=== PATIENT | female | born 1930 | race Caucasian/White ===

== ENCOUNTER 2018-08-12 09:40 | Inpatient (IN) | payer OTHER ==
[~2018-08-12] VITALS: Ht 165.1 cm; Wt 73.4 kg
[~2018-08-12 09:40] MED LIST: ALBU90OI61 INH; AMOCLA500 PO; ASPI81CH PO; AZIT250 PO; BENZ100A PO; CHOL10002 PO; CIPR500 PO; CODACE30 PO; FOSAMAX PO; GLUCOSAMINE HC500 MG PO; Lovastatin40 MG PO; METO25ER PO; METO50 PO; PRED10 PO; PROM25 PO; TIOT18 INH; [UNRECOGNIZED DRUG - OTHER] PO
[2018-08-12 11:50] LABS: BASOPHILS ABSOLUTE AUTO 0.03 K/mm3 (0.00-0.23); BASOPHILS PERCENT AUTO 0 % (0-2); EOSINOPHILS ABSOLUTE AUTO 0.12 K/mm3 (0.00-0.68); EOSINOPHILS PERCENT AUTO 2 % (0-6); Hematocrit 37.5 % (33.0-51.0); Hemoglobin 11.9 g/dL (11.5-16.0); IMMATURE GRAN ABSOLUTE AUTO 0.04 K/mm3 (0.00-0.10); IMMATURE GRAN PERCENT AUTO 1 % (0-1); LYMPHOCYTES ABSOLUTE AUTO 0.97 K/mm3 (0.84-5.20); LYMPHOCYTES PERCENT AUTO 13 % (21-46); MONOCYTES ABSOLUTE AUTO 0.62 K/mm3 (0.16-1.47); MONOCYTES PERCENT AUTO 8 % (4-13); Mean Corpuscular HGB 29.2 pg (26.0-34.0); Mean Corpuscular HGB Conc 31.7 g/dL (31.5-36.5); Mean Corpuscular Volume 92 fL (80-100); NEUTROPHILS ABSOLUTE AUTO 5.93 K/mm3 (1.96-9.15); NEUTROPHILS PERCENT AUTO 77 % (41-73); Platelet Count 270 K/mm3 (150-400); RDW Coefficient Variation 13.7 % (11.7-14.2); RDW Standard Deviation 46.6 fL (35.1-46.3); Red Blood Cell Count 4.07 M/mm3 (3.80-5.20); White Blood Cell Count 7.71 K/mm3 (4.00-11.30)
[2018-08-12 11:57] LABS: Albumin, Blood 3.4 g/dL (3.4-5.0); Albumin/Globulin Ratio 0.9 (0.8-1.8); Bilirubin, Total 0.3 mg/dL (0.1-1.0); Bun/Creatinine Ratio 12.6 (12.0-20.0); Calcium, Blood 9.1 mg/dL (8.5-10.1); Creatinine, Blood 1.43 mg/dL (0.40-1.00); Globulin, Blood 3.8 g/dL (2.2-4.0); Potassium, Blood 4.7 mmol/L (3.5-5.5); Total Protein, Blood 7.2 g/dL (6.4-8.2)
[2018-08-19 05:05] LABS: BASOPHILS ABSOLUTE AUTO 0.04 K/mm3 (0.00-0.23); BASOPHILS PERCENT AUTO 1 % (0-2); EOSINOPHILS ABSOLUTE AUTO 0.38 K/mm3 (0.00-0.68); EOSINOPHILS PERCENT AUTO 6 % (0-6); Hematocrit 34.8 % (33.0-51.0); Hemoglobin 10.9 g/dL (11.5-16.0); IMMATURE GRAN ABSOLUTE AUTO 0.03 K/mm3 (0.00-0.10); IMMATURE GRAN PERCENT AUTO 1 % (0-1); LYMPHOCYTES PERCENT AUTO 26 % (21-46); MONOCYTES PERCENT AUTO 10 % (4-13); Mean Corpuscular HGB 29.4 pg (26.0-34.0); Mean Corpuscular HGB Conc 31.3 g/dL (31.5-36.5); Mean Corpuscular Volume 94 fL (80-100); Mean Platelet Volume 9.2 fL (9.1-12.4); NEUTROPHILS PERCENT AUTO 57 % (41-73); Platelet Count 198 K/mm3 (150-400); RDW Coefficient Variation 13.6 % (11.7-14.2); RDW Standard Deviation 46.6 fL (35.1-46.3); Red Blood Cell Count 3.71 M/mm3 (3.80-5.20); White Blood Cell Count 6.15 K/mm3 (4.00-11.30)
[2018-08-19 05:35] LABS: Bun/Creatinine Ratio 14.7 (12.0-20.0); Calcium, Blood 8.4 mg/dL (8.5-10.1); Creatinine, Blood 1.09 mg/dL (0.40-1.00); Potassium, Blood 4.2 mmol/L (3.5-5.5)
[2018-08-19] MEDS ORDERED: ASPI81CH PO (10:15)
[2018-08-19] MEDS ORDERED: ACET325 PO (10:15)
[2018-08-19] MEDS ORDERED: Tobrex5 ML RIGHTEAR (10:16)
[2018-08-19] MEDS ORDERED: CIPDEXSU RIGHTEAR (10:16)
[2018-08-24] MEDS ORDERED: Hair, Skin & N1 EACH PO (05:28)
== END 2018-08-19 14:24 | disposition home health service (06) | DRG 863 ==
LOC: ER 09:40 → ERHOLD 09:41 → MEDS 16:08 → ENPENDDIS 08-19 10:03 → MEDS 08-19 14:24
PROVIDERS: Internal Medicine; Physician Assistant
PROC: 0HD Skin and Breast, Extraction (ICD-10-PCS; principal; 2018-08-18)
DX: T81.40XA Infection following a procedure, unspecified, initial encounter (principal); H60.21 Malignant otitis externa, right ear; N17.9 Acute kidney failure, unspecified; L03.211 Cellulitis of face; E66.9 Obesity, unspecified; I12.9 Hypertensive chronic kidney disease with stage 1 through stage 4 chronic kidney disease, or unspecified chronic kidney disease; N18.3 Chronic kidney disease, stage 3 (moderate); G47.30 Sleep apnea, unspecified; B96.5 Pseudomonas (aeruginosa) (mallei) (pseudomallei) as the cause of diseases classified elsewhere; B96.89 Other specified bacterial agents as the cause of diseases classified elsewhere; E78.5 Hyperlipidemia, unspecified; J44.9 Chronic obstructive pulmonary disease, unspecified; Z99.81 Dependence on supplemental oxygen; Z66 Do not resuscitate; C44.212 Basal cell carcinoma of skin of right ear and external auricular canal; Z68.27 Body mass index [BMI] 27.0-27.9, adult
CPT/HCPCS: 36415; 80048; 80053; 82565; 85025; 94640; 94660; 94664; 94760; 94762; 96365; 96372; 96376; 99284-25; G0378; J1650; J2543; J3010; J7050

== ENCOUNTER → 2019-02-08 | Outpatient (CLI) | payer OTHER ==
[~2019-02-08] MED LIST changes: +ACET325 PO; +CIPDEXSU RIGHTEAR; +Hair, Skin & N1 EACH PO; +Tobrex5 ML RIGHTEAR
== END | disposition home or self-care (01) ==
LOC: LAB 13:15 → LAB SHORT 13:15
DX: L08.9 Local infection of the skin and subcutaneous tissue, unspecified (principal)
CPT/HCPCS: 87070; 87205

== ENCOUNTER → 2019-03-08 | Outpatient (CLI) | payer OTHER | END | disposition home or self-care (01) | LOC: LAB 17:39 → LAB SHORT 17:39 | DX: L03.211 Cellulitis of face (principal) | CPT/HCPCS: 87070; 87205 ==

== ENCOUNTER → 2019-03-13 | Outpatient (CLI) | payer OTHER | END | disposition home or self-care (01) | LOC: PLD 15:37 → LAB 15:37 → LAB SHORT 15:37 | DX: C44.212 Basal cell carcinoma of skin of right ear and external auricular canal (principal) | CPT/HCPCS: 88305 ==

== ENCOUNTER 2019-10-17 12:01 | Observation (INO) | payer OTHER ==
[~2019-10-17] VITALS: Ht 165.1 cm; Wt 61.6 kg
[~2019-10-17 12:01] MED LIST changes: +Aspir 8181 MG PO; -CHOL10002 PO; +VITAMIN D350 MCG PO
[2019-10-17 12:53] LABS: BASOPHILS ABSOLUTE AUTO 0.03 K/mm3 (0.00-0.23); BASOPHILS PERCENT AUTO 0 % (0-2); EOSINOPHILS ABSOLUTE AUTO 0.14 K/mm3 (0.00-0.68); EOSINOPHILS PERCENT AUTO 2 % (0-6); Hematocrit 38.6 % (33.0-51.0); Hemoglobin 12.4 g/dL (11.5-16.0); IMMATURE GRAN ABSOLUTE AUTO 0.07 K/mm3 (0.00-0.10); IMMATURE GRAN PERCENT AUTO 1 % (0-1); LYMPHOCYTES ABSOLUTE AUTO 1.18 K/mm3 (0.84-5.20); LYMPHOCYTES PERCENT AUTO 13 % (21-46); MONOCYTES ABSOLUTE AUTO 0.74 K/mm3 (0.16-1.47); MONOCYTES PERCENT AUTO 8 % (4-13); Mean Corpuscular HGB Conc 32.1 g/dL (31.5-36.5); Mean Corpuscular Volume 94 fL (80-100); Mean Platelet Volume 9.1 fL (9.1-12.4); NEUTROPHILS ABSOLUTE AUTO 7.03 K/mm3 (1.96-9.15); NEUTROPHILS PERCENT AUTO 77 % (41-73); Platelet Count 267 K/mm3 (150-400); RDW Coefficient Variation 12.9 % (11.7-14.2); RDW Standard Deviation 44.4 fL (35.1-46.3); Red Blood Cell Count 4.13 M/mm3 (3.80-5.20); White Blood Cell Count 9.19 K/mm3 (4.00-11.30)
[2019-10-17 13:07] LABS: International Normalized Ratio 0.98; Prothrombin Time Results 10.5 Sec (9.7-11.5)
[2019-10-17 13:12] LABS: Albumin, Blood 3.5 g/dL (3.4-5.0); Albumin/Globulin Ratio 0.9 (0.8-1.8); Alk Phos 60 U/L (50-136); Anion Gap 6 mmol/L (6-16); Aspartate Aminotrans (AST/SGOT 24 U/L (12-37); Bilirubin, Total 0.4 mg/dL (0.1-1.0); Blood Urea Nitrogen 23 mg/dL (8-24); Bun/Creatinine Ratio 13.5 (12.0-20.0); CO2, Blood 30 mmol/L (21-32); Calcium, Blood 9.3 mg/dL (8.5-10.1); Chloride, Blood 99 mmol/L (98-108); Globulin, Blood 3.9 g/dL (2.2-4.0); Glomerular Filtration Rate 30 (60-); Glucose, Blood 102 mg/dL (70-99); Potassium, Blood 4.8 mmol/L (3.5-5.5); Sodium, Blood 135 mmol/L (136-145); Total Protein, Blood 7.4 g/dL (6.4-8.2)
[2019-10-17 13:14] LABS: Troponin I <0.015 ng/mL (0.000-0.040)
[2019-10-17 13:25] LABS: Alanine Aminotransfer (ALT/SGP 16 U/L (12-78)
--- NOTE | 2019-10-17 18:30 | NUR ---
PATIENT ADMITED TO ROOM 351, REPORT RECEIVED FROM DANIA SAMSON IN ED. PATIENT IS A/OX4, UP WITH SBA TO RESTROOM. MAINTAINING SATS ON RA. PRODUCTIVE COUGH. SCD'S PLACED. 20G IV TO R FA, BOLUS FROM ED FINISHING UP. PATIENT ORIENTED TO ROOM AND USE OF CALL LIGHT. FALL PRECAUTIONS IN PLACE PER UNIT PROTOCOL.
[2019-10-17 23:48] LABS: Adenovirus Not Detected (NOT DETECT); Bordetella pertussis Not Detected (NOT DETECT); Chlamydophila pneumoniae Not Detected (NOT DETECT); Coronavirus 229E Not Detected (NOT DETECT); Coronavirus HKU1 Not Detected (NOT DETECT); Coronavirus NL63 Not Detected (NOT DETECT); Coronavirus OC43 Not Detected (NOT DETECT); Human Metapneumovirus Not Detected (NOT DETECT); Human Rhinovirus/Enterovirus Not Detected (NOT DETECT); Influenza A Not Detected (NOT DETECT); Influenza A/2009-H1 Not Detected (NOT DETECT); Influenza A/H1 Not Detected (NOT DETECT); Influenza A/H3 Not Detected (NOT DETECT); Influenza B Not Detected (NOT DETECT); Mycoplasma pneumoniae Not Detected (NOT DETECT); Parainfluenza Virus 1 Not Detected (NOT DETECT); Parainfluenza Virus 2 Not Detected (NOT DETECT); Parainfluenza Virus 3 Not Detected (NOT DETECT); Parainfluenza Virus 4 Not Detected (NOT DETECT); Respiratory Syncytial Virus Not Detected (NOT DETECT)
--- NOTE | 2019-10-18 04:43 | NUR ---
ELDERLY WHITE FEMALE WITH HX OF CHILDHOOD TB AND TX OF TB IN [facility] HAS ANGEL AND COPD WITH HOME OXYGEN AND HOME CPAP USE. MORE SHORT OF BREATH AND WENT TO PRIMARY CARE VISIT AND HE SENT TO HOSPITIAL FOR TX OF PROBABLE PNEUMONIA. PT ON OYGEN 2 L AND UNABLE TO TOLERATE HOSPITAL CPAP. PT WITH PRODUCTIVE COUGH RESP PANEL NEGATIVE. ON IV STEROIDS Q 6 HOURS AND RECIEVING 1 L NS AFTER 1800 IV FLUID IN ER. PT IS HARD OF HEARING BUT ABLE TO COMMUNICATE. [facility]. HAS SON WHO LIVES OUT OF STATE. DNR STATUS VERIFIED. ON ANTIBIOTIC THERAPY TO TX SUSPECTED PNEUMONIA.
[2019-10-18 05:21] LABS: BASOPHILS ABSOLUTE AUTO 0.01 K/mm3 (0.00-0.23); BASOPHILS PERCENT AUTO 0 % (0-2); EOSINOPHILS PERCENT AUTO 0 % (0-6); Hematocrit 36.1 % (33.0-51.0); Hemoglobin 11.5 g/dL (11.5-16.0); IMMATURE GRAN ABSOLUTE AUTO 0.04 K/mm3 (0.00-0.10); IMMATURE GRAN PERCENT AUTO 1 % (0-1); LYMPHOCYTES ABSOLUTE AUTO 0.39 K/mm3 (0.84-5.20); LYMPHOCYTES PERCENT AUTO 5 % (21-46); MONOCYTES ABSOLUTE AUTO 0.06 K/mm3 (0.16-1.47); MONOCYTES PERCENT AUTO 1 % (4-13); Mean Corpuscular HGB 29.9 pg (26.0-34.0); Mean Corpuscular HGB Conc 31.9 g/dL (31.5-36.5); Mean Corpuscular Volume 94 fL (80-100); Mean Platelet Volume 8.8 fL (9.1-12.4); NEUTROPHILS ABSOLUTE AUTO 6.77 K/mm3 (1.96-9.15); NEUTROPHILS PERCENT AUTO 93 % (41-73); Platelet Count 217 K/mm3 (150-400); RDW Standard Deviation 44.6 fL (35.1-46.3); Red Blood Cell Count 3.85 M/mm3 (3.80-5.20); White Blood Cell Count 7.27 K/mm3 (4.00-11.30)
[2019-10-18 05:44] LABS: Albumin, Blood 2.9 g/dL (3.4-5.0); Albumin/Globulin Ratio 0.8 (0.8-1.8); Bilirubin, Total 0.2 mg/dL (0.1-1.0); Bun/Creatinine Ratio 15.3 (12.0-20.0); Calcium, Blood 8.5 mg/dL (8.5-10.1); Creatinine, Blood 1.24 mg/dL (0.40-1.00); Globulin, Blood 3.5 g/dL (2.2-4.0); Potassium, Blood 4.8 mmol/L (3.5-5.5); Total Protein, Blood 6.4 g/dL (6.4-8.2)
[2019-10-18] MEDS ORDERED: LEVO750 PO (10:23)
[2019-10-18] MEDS ORDERED: ALBU90OI INH (10:24)
[2019-10-18] MEDS ORDERED: FLUTICASONE-SA1 EAC1 INH (10:24)
--- NOTE | 2019-10-18 11:34 | NUR ---
PT DISCHARGED AT 1124 REVIEWED DC INSTRUCTIONS WITH PT AND HITESH (NURSE FROM [facility])- PT VERB UNDERSTANDING. NEW RX FAXED TO [facility], CALLED TO CONFIRM THEY WOULD DELIVER TO PT. PERSONAL BELONGINGS WITH PT. PT DISCHARGED VIA WC TO [facility] TRANSPORT VAN.
== END 2019-10-18 11:24 | disposition home or self-care (01) ==
LOC: ER 12:01 → MEDS 12:02 → ER 18:12 → MEDS 18:28
PROVIDERS: Emergency Medicine; Nurse Practitioner Acute Care; ADMIT Internal Medicine
DX: J44.1 Chronic obstructive pulmonary disease with (acute) exacerbation (principal); I12.9 Hypertensive chronic kidney disease with stage 1 through stage 4 chronic kidney disease, or unspecified chronic kidney disease; J18.9 Pneumonia, unspecified organism; N17.9 Acute kidney failure, unspecified; N18.9 Chronic kidney disease, unspecified; G47.33 Obstructive sleep apnea (adult) (pediatric); E78.5 Hyperlipidemia, unspecified; Z99.81 Dependence on supplemental oxygen; Z79.82 Long term (current) use of aspirin; Z66 Do not resuscitate; Z87.891 Personal history of nicotine dependence
CPT/HCPCS: 0099U; 36415; 71046; 80053; 83605; 83880; 84145; 84484; 85025; 85610; 87070; 87205; 93005; 93010; 94640; 94660; 94762; 96361; 96365; 96367; 97112; 97161; 99285-25; G0378; J0456; J0696; J2930; J7030; J7050